=== PATIENT | female | born 1985 | race Caucasian/White ===

== ENCOUNTER 2018-06-24 13:50 | Inpatient (IN) | payer OTHER ==
[~2018-06-24 13:50] MED LIST: Bupivacaine 0.25% HCL 30 ML VIAL ONE
[2018-06-24] MEDS ORDERED: Ibuprofen 800 MG TAB PO PRN (22:07)
[2018-06-24] MEDS ORDERED: NS / Oxytocin 40 units/1000ml 1,000 ML IV PRN (22:07)
[2018-06-24] MEDS ORDERED: Docusate 100 MG CAP PO PRN (22:07)
[2018-06-24] MEDS ORDERED: Acetaminophen 500 MG TAB PO PRN (22:07)
[2018-06-24] MEDS ORDERED: Lidocaine 1% (PF) 30 ML VIAL SC PRN (22:07)
[2018-06-24] MEDS ORDERED: Diphenoxylate HCl/Atropine Tablet PO PRN ×2 (22:07)
[2018-06-24] MEDS ORDERED: Butorphanol Tartrate 1 MG/ML VIAL SLOW IVP PRN (22:07)
[2018-06-24] MEDS ORDERED: NS w/ Oxytocin 10 units 500 ML IV SCH (22:07)
[2018-06-24] MEDS ORDERED: HYDROcodone/Acetaminophen 5/325 mg Tablet PO PRN ×2 (22:07)
[2018-06-24] MEDS ORDERED: Promethazine HCl 25 MG/ML VIAL IM PRN (22:07)
[2018-06-24] MEDS ORDERED: Misoprostol 200 MCG TAB PR PRN (22:07)
[2018-06-24] MEDS ORDERED: Ondansetron PF 4 MG/2 ML Vial IVP PRN (22:07)
[2018-06-24] MEDS ORDERED: Zolpidem Tartrate 5 MG TAB PO PRN (22:07)
[2018-06-24 22:25] VITALS: BMI 43.0
[2018-06-24] MEDS ORDERED: Penicillin G Potassium 5 MILL.UNITS in Sodium Chloride 0.9% 100 ML IVPB SCH (22:30)
[2018-06-24] MEDS: Lactated Ringer's 1,000 ML IV SCH (23:18)
[2018-06-24] MEDS: Misoprostol 100 MCG TAB VAG SCH (23:21)
[2018-06-24 23:35] LABS: Hemoglobin 12.9 g/dL (12.0-16.0); Mean Corpuscular HGB CONC 34.1 g/dL (32.0-36.0); Mean Corpuscular Hemoglobin 29.5 pg (27.0-31.0); Mean Corpuscular Volume 86.4 fL (78.0-98.0); Mean Platelet Volume 9.3 fL (7.4-10.4); Platelet Count 211 thou/uL (130-400); RBC Distribution Width 11.8 % (11.5-14.5); Red Blood Cell (RBC) Count 4.38 mill/uL (4.20-5.40)
[2018-06-25 00:09] LABS: HBSAg Index 0.18 S/CO (0-0.99); Hep B Surf Ag Non-Reactive S/CO (NonReactive); Syphilis Antibody Nonreactive (Nonreactive); Syphilis Antibody Index 0.04 S/CO (<1.00 Non-Reactive)
[2018-06-25] MEDS ORDERED: Fentanyl 100 MCG/2 ML VIAL EPIDURAL ONE (00:15)
[2018-06-25] MEDS: Penicillin G 2.5 MILL.units 2.5 MILL.UNITS in Premix Bag 1 BAG IVPB SCH ×4 (03:31→16:15)
[2018-06-25] MEDS: Misoprostol 100 MCG TAB VAG SCH (03:57)
[2018-06-25] MEDS: Lactated Ringer's 1,000 ML IV SCH ×2 (07:38→16:15)
[2018-06-25] MEDS: NS w/ Oxytocin 10 units 500 ML IV SCH (07:39)
[2018-06-25] MEDS ORDERED: Fentanyl 4 mcg/Bup 0.1% Cadd 100 ML ONE (08:42)
[2018-06-25] MEDS ORDERED: Fentanyl 100 MCG/2 ML VIAL ONE (09:01)
[2018-06-25] MEDS ORDERED: Ondansetron PF 4 MG/2 ML Vial IVP PRN ×2 (10:47→18:32)
[2018-06-25] MEDS ORDERED: diphenhydrAMINE 50 MG/ML VIAL IVP PRN (10:47)
[2018-06-25] MEDS ORDERED: ePHEDrine/0.9% NaCl/PF SYRINGE 50 mg/10 ml SLOW IVP PRN (10:47)
[2018-06-25] MEDS ORDERED: Acetaminophen 325 MG TAB PO PRN (10:47)
[2018-06-25] MEDS ORDERED: Promethazine HCl 25 MG/ML VIAL IM PRN (10:47)
[2018-06-25] MEDS ORDERED: Eucerin (Mineral Oil/Petrolatum,White) 30 gm Jar TOP PRN (10:47)
[2018-06-25] MEDS ORDERED: Lactated Ringer's 500 ML IV PRN (10:47)
[2018-06-25] MEDS ORDERED: Naloxone HCl 0.4 mg/ml Vial IVP PRN ×2 (10:47)
[2018-06-25] MEDS ORDERED: Communication Order-Pharmacy FS SCH (11:00)
[2018-06-25] MEDS ORDERED: Fentanyl 4 mcg/Bupivacaine 0.1% Cassette 100 ML EPIDURAL SCH (11:00)
[2018-06-25] MEDS ORDERED: Benzocaine/Menthol 20-0.5% 60 ML CAN TOP PRN (18:32)
[2018-06-25] MEDS ORDERED: Bisacodyl 10 MG SUPP PR PRN (18:32)
[2018-06-25] MEDS ORDERED: Acetaminophen/Codeine 30-300mg Tablet PO PRN ×2 (18:32)
[2018-06-25] MEDS ORDERED: diphenhydrAMINE 25 MG CAP PO PRN (18:32)
[2018-06-25] MEDS ORDERED: Lanolin Ointment 7 GM TUBE TOP PRN (18:32)
[2018-06-25] MEDS ORDERED: Milk Of Magnesia 30 ML UDCUP PO PRN (18:32)
[2018-06-25] MEDS ORDERED: Preparation H Ointment 28 GM TUBE PR PRN (18:32)
[2018-06-25] MEDS ORDERED: Zolpidem Tartrate 5 MG TAB PO PRN (18:32)
[2018-06-25] MEDS ORDERED: NS / Oxytocin 40 units/1000ml 1,000 ML IV SCH (18:45)
[2018-06-25] MEDS ORDERED: Adacel (T-DAP) 0.5 ML SYRINGE IM ONE (21:00)
[2018-06-25] MEDS: Ibuprofen 800 MG TAB PO SCH (22:36)
[2018-06-25] MEDS: Docusate Calcium (SURFAK) 240 MG CAP PO SCH (22:36)
[2018-06-26] MEDS: Lactated Ringer's 1,000 ML IV SCH ×3 (03:17→13:49)
[2018-06-26] MEDS: NS w/ Oxytocin 10 units 500 ML IV SCH (03:17)
[2018-06-26] MEDS: Ibuprofen 800 MG TAB PO SCH ×3 (05:16→21:14)
[2018-06-26] MEDS: Ferrous Sulfate 325 MG TAB PO SCH ×2 (07:33→16:05)
[2018-06-26] MEDS: Prenatal Vitamin 1 TAB PO SCH (10:18)
[2018-06-26] MEDS: Docusate Calcium (SURFAK) 240 MG CAP PO SCH ×2 (10:18→21:14)
[2018-06-27] MEDS: Lactated Ringer's 1,000 ML IV SCH ×2 (01:27→06:39)
[2018-06-27] MEDS: NS w/ Oxytocin 10 units 500 ML IV SCH (01:27)
[2018-06-27] MEDS: Ibuprofen 800 MG TAB PO SCH ×2 (05:11→13:40)
[2018-06-27 08:21] VITALS: BP 116/57; TEMP 97.7
[2018-06-27] MEDS: Ferrous Sulfate 325 MG TAB PO SCH (10:15)
[2018-06-27] MEDS: Prenatal Vitamin 1 TAB PO SCH (10:17)
[2018-06-27] MEDS: Docusate Calcium (SURFAK) 240 MG CAP PO SCH (10:17)
== END 2018-06-27 15:55 | disposition home or self-care (01) | DRG 807 ==
LOC: L&D 21:40 → EDSTATUS 06-25 13:50 → 3SW 06-25 21:58
PROVIDERS: ADMIT Obstetrics & Gynecology; ATTEND Obstetrics & Gynecology
PROC: 10E0XZZ Delivery of Products of Conception, External Approach (ICD-10-PCS; principal; 2018-06-25)
PROC: 0HQ9XZZ Repair Perineum Skin, External Approach (ICD-10-PCS; 2018-06-25)
PROC: 10907ZC Drainage of Amniotic Fluid, Therapeutic from Products of Conception, Via Natural or Artificial Opening (ICD-10-PCS; 2018-06-25)
PROC: 3E033VJ Introduction of Other Hormone into Peripheral Vein, Percutaneous Approach (ICD-10-PCS; 2018-06-25)
DX: O48.0 Post-term pregnancy (principal); Z37.0 Single live birth; Z3A.40 40 weeks gestation of pregnancy; O99.824 Streptococcus B carrier state complicating childbirth; O70.0 First degree perineal laceration during delivery; O76 Abnormality in fetal heart rate and rhythm complicating labor and delivery; O69.81X0 Labor and delivery complicated by cord around neck, without compression, not applicable or unspecified
CPT/HCPCS: 36415; 51702; 85027; 86780; 86850; 86900; 86901; 87340; J2405; J2540; J3010; J7050; S0020